=== PATIENT | male | born 1955 | race Caucasian/White ===

== ENCOUNTER 2020-12-14 09:35 | Emergency (ER) | payer MEDICARE, BC ==
--- NOTE | 2020-12-14 10:02 | EDM.PDOC ---
ED HPI GENERAL MEDICAL PROBLEM - General Chief Complaint: Lower Extremity Injury/Pain Stated Complaint: LT ANKLE INJURY Time Seen by Provider: 12/14/20 10:00 Source of Information: Reports: Patient, RN Notes Reviewed - History of Present Illness INITIAL COMMENTS - FREE TEXT/NARRATIVE: 65 yr old male comes in with L ankle injury. 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 Did not hurt that much at time of injury. Pain has really worsened yesterday and today. Very hard to bear wt. Left Ankle Pain Score (Numeric/FACES): 9 - Related Data Allergies Allergy/AdvReac Type Severity Reaction Status Date / Time No Known Allergies Allergy Verified 12/14/20 09:53 Home Meds: Home Meds Colchicine 0.6 mg PO ASDIRECTED 12/14/20 [History] Hydrocodone/Acetaminophen [Hydrocodone-Acetamin 5-325 mg] 1 each PO Q6HR #14 tablet 12/14/20 [Rx] Past Medical History Musculoskeletal History: Reports: Amputation, Gout Endocrine/Metabolic History: Reports: Obesity/BMI 30+ - Past Surgical History Musculoskeletal Surgical History: Reports: Other (See Below) Other Musculoskeletal Surgeries/Procedures:: Multiple Fingers Amputated Social & Family History - Tobacco Use Tobacco Use Status *Q: Never Tobacco User - Caffeine Use Caffeine Use: Reports: Coffee - Recreational Drug Use Recreational Drug Use: No Review of Systems - Review of Systems Review Of Systems: See Below Constitutional: Reports: No Symptoms Respiratory: Reports: No Symptoms Cardiovascular: Reports: No Symptoms Musculoskeletal: Reports: Joint Pain (L ankle) Skin: Denies: Bruising, Erythema ED EXAM, GENERAL - Physical Exam Exam: See Below General Appearance: Alert, Mild Distress Head: Atraumatic Neck: Supple Respiratory/Chest: No Respiratory Distress Extremities: Other (moderate tenderness and swelling lateral L ankle, no visual deformity, foot nontender, mild tenderness medial ankle) Skin Exam: Warm, Dry, Normal Color Course - Vital Signs Last Recorded V/S: Last Vital Signs Temp 96.3 F L 12/14/20 09:50 Pulse 104 H 12/14/20 09:50 Resp 16 12/14/20 09:50 BP 181/77 H 12/14/20 09:50 Pulse Ox 96 12/14/20 09:50 - Orders/Labs/Meds Orders: Active Orders 24 hr Category Date Time Status Durable Medical Equipment for Discharge [DME for Oth 12/14/20 11:13 Ordered Discharge] [COMM] Stat Durable Medical Equipment for Discharge [DME for Oth 12/14/20 11:19 Ordered Discharge] [COMM] Stat Meds: Medications Discontinued Medications Generic Name Dose Route Start Last Admin Trade Name Martin PRN Reason Stop Dose Admin Ketorolac Tromethamine 60 mg 12/14/20 10:46 12/14/20 10:58 Ketorolac 60 Mg/2 Ml Sdv IM 12/14/20 10:47 60 mg ONETIME ONE Administration - Re-Assessments/Exams Free Text/Narrative Re-Assessment/Exam: 12/14/20 14:50 X rays of ankle jt look good. Radiologist is calling possible minimal cortical avulsion fx off the medial tarsal bone. I have discussed this with pt. Have offered to do a fiberglass splint. He has a walking boot at home. He would prefer to do that. Discharge instr. as documented. Departure - Departure Time of Disposition: 11:18 Disposition: Home, Self-Care 01 Condition: Fair Clinical Impression: Left ankle sprain Qualifiers: Encounter type: initial encounter Involved ligament of ankle: unspecified ligament Qualified Code(s): S93.402A - Sprain of unspecified ligament of left ankle, initial encounter - Discharge Information Prescriptions: Hydrocodone/Acetaminophen [Hydrocodone-Acetamin 5-325 mg] 1 each PO Q6HR #14 tablet Instructions: Ankle Sprain Referrals: PCP,None [Primary Care Provider] - Forms: ED Department Discharge Additional Instructions: Charles wrap, ice packs and elevation as much as possible for swelling. Use boot and crutches. No weight bearing until pain resolving. Advil or ibuprofen 3 times daily. Tylenol in between doses for extra pain relief or hydrocodone if needed for severe pain. [facility]. Follow up clinic in about 10 days if pain not resolving as expected. Sepsis Event Note (ED) - Evaluation Sepsis Screening Result: No Definite Risk - Focused Exam Vital Signs: Vital Signs Temp Pulse Resp BP Pulse Ox 12/14/20 09:50 96.3 F L 104 H 16 181/77 H 96 - My Orders Last 24 Hours: My Active Orders 12/14/20 11:13 Durable Medical Equipment for Discharge [DME for Discharge] [COMM] Stat 12/14/20 11:19 Durable Medical Equipment for Discharge [DME for Discharge] [COMM] Stat - Assessment/Plan Last 24 Hours: My Active Orders 12/14/20 11:13 Durable Medical Equipment for Discharge [DME for Discharge] [COMM] Stat 12/14/20 11:19 Durable Medical Equipment for Discharge [DME for Discharge] [COMM] Stat
--- NOTE | 2020-12-14 10:37 | CR ---
Left ankle: 4 views of the left ankle were obtained. Comparison: No prior ankle study. Small plantar spur is noted. Diffuse soft tissue swelling is seen. There is slight lucency within the medial tarsal bone suspicious for minimal avulsion fracture off the cortex. No additional fracture or other abnormality is appreciated. Impression: 1. Soft tissue swelling. 2. Findings suspicious for minimal cortical avulsion fracture off the medial tarsal bone. 3. No additional fracture is seen. Diagnostic code #3
[2020-12-14] MEDS ORDERED: Ketorolac 60 MG/2 ML SDV IM ONE (10:46)
== END 2020-12-14 11:50 | disposition home or self-care (01) ==
LOC: JD.ED 09:35
DX: S93.402A Sprain of unspecified ligament of left ankle, initial encounter (principal); E66.9 Obesity, unspecified; Z68.35 Body mass index [BMI] 35.0-35.9, adult; X50.1XXA Overexertion from prolonged static or awkward postures, initial encounter
CPT/HCPCS: 73610; 96372; 99283; J1885